=== PATIENT | male | born 1980 ===

== ENCOUNTER 2017-08-24 10:13 | Emergency (ER) | payer OTHER ==
[2017-08-24 10:42] VITALS: BMI 29.6
--- NOTE | 2017-08-24 11:03 | ED PDOC ---
Lower Extremity Pain/Injury Time Seen by Provider: 08/24/17 10:55 Chief Complaint (Nursing): Lower Extremity Problem/Injury History Per: Patient Onset/Duration Of Symptoms: Days (2) Current Symptoms Are (Timing): Still Present Severity: Moderate Pain Scale Rating Of: 4 Additional Complaint(s): Fell yesterday twisting right knee. Has had pain and swelling despite use of Advil. Denies weakness or fever. Past Medical History Vital Signs: Last Vital Signs Temp 98.5 F 08/24/17 10:42 Pulse 77 08/24/17 10:42 Resp 20 08/24/17 10:42 BP 121/83 08/24/17 10:42 Pulse Ox 97 08/24/17 10:42 - Medical History PMH: No Chronic Diseases - Family History Family History: States: Unknown Family Hx - Home Medications Home Medications: Ambulatory Orders Medication Instructions Recorded Naproxen [Naprosyn] 500 mg PO Q12H #20 tab 08/24/17 traMADol [Ultram] 50 mg PO Q8 #10 tab 08/24/17 - Allergies Allergies/Adverse Reactions: Allergies Allergy/AdvReac Type Severity Reaction Status Date / Time No Known Allergies Allergy Verified 08/24/17 10:52 Review of Systems Constitutional: Negative for: Fever Musculoskeletal: Positive for: Other (Knee pain and swelling) Physical Exam - Physical Exam Appears: Positive for: Non-toxic, No Acute Distress Skin: Positive for: Normal Color, Warm, DRY Extremity: Positive for: Other (Right knee mod swelling suprapatellar area. No erythema, no crepitance, no instability. Tenderness laterally and medially.) Neurologic/Psych: Positive for: Alert, Oriented. Negative for: Motor/Sensory Deficits - ECG O2 Sat by Pulse Oximetry: 97 Disposition - Clinical Impression Clinical Impression: Knee sprain - Patient ED Disposition Is Patient to be Admitted: No - Disposition Referrals: Nicholas Butcher MD [Staff Provider] - Disposition: Routine/Home Disposition Time: 13:54 Condition: FAIR Prescriptions: Naproxen [Naprosyn] 500 mg PO Q12H #20 tab traMADol [Ultram] 50 mg PO Q8 #10 tab Instructions: Knee Sprain (DC) Forms: [employer] (Divehi) Print Language: FRENCH
--- NOTE | 2017-08-24 11:46 | RAD ---
PROCEDURE: Right Knee Radiographs. HISTORY: trauma COMPARISON: None. FINDINGS: BONES: No acute fracture or destructive bony lesion identified. JOINTS: Normal. No osteoarthritis. JOINT EFFUSION: Moderate suprasellar bursa effusion noted. OTHER FINDINGS: None. IMPRESSION: No acute fracture or dislocation identified. There is a moderate suprapatellar bursa effusion.
[2017-08-24 14:32] VITALS: BP 128/78; PULSE 78; RESP 19; TEMP 97.5; O2SAT 98
== END 2017-08-24 14:33 | disposition home or self-care (01) ==
LOC: H.ER 10:13
DX: S83.91XA Sprain of unspecified site of right knee, initial encounter (principal); W19.XXXA Unspecified fall, initial encounter
CPT/HCPCS: 73562; 96372; 99284; J1885